=== PATIENT | male | born 1960 | race Caucasian/White ===

== ENCOUNTER 2017-05-16 19:59 | Emergency (ER) | payer OTHER ==
[~2017-05-16] VITALS: Ht 162.6 cm; Wt 66.5 kg
[~2017-05-16 19:59] MED LIST: BACTRIM,SEPT1 TABLET PO; CEFTIN500 MG PO; CORICIDIN HB1 TABLET PO; DELTASONE20 M1 PO; FAMOTIDINE20 MG PO; PREDNISONE20 MG PO; PRINIVIL10 MG PO; PROAIR HFA8.5 GM IH; ROBITUSSIN100 MG/5 M PO; SPIRIVA RESPIMAT4 G1 IH; TESSALON200 MG PO; TUMS500 MG PO
[2017-05-16 20:51] LABS: HEMATOCRIT 45.4 % (38.0-50.0); MCH 30.1 PG (29.0-34.0); MCHC 33.9 G/DL (30.0-36.0); MCV 88.8 FL (86-99); MEAN PLAT.VOLUME 8.7 uM^3 (9.0-12.4); PLATELET COUNT 392 K/uL (156-360); RBC DIS.WIDTH-SD 42.4 % (39-53); RED BLOOD COUNT 5.11 M/uL (4.00-5.50); WHITE BLOOD COUNT 12.2 K/uL (4.1-10.2)
[2017-05-16 21:01] LABS: CHLORIDE 105 mEq/L (99-109); POTASSIUM 4.1 mEq/L (3.7-5.4); SODIUM 138 mEq/L (136-147)
[2017-05-16 21:02] LABS: GLUCOSE 88 mg/dL (70-99)
[2017-05-16 21:04] LABS: ANION GAP 11 MEQ/L (2-14)
[2017-05-16 21:06] LABS: GFR ESTIMATE (CALCULATED) 52 mL/min/
[2017-05-16 21:07] LABS: UREA NITROGEN (BUN) 23 mg/dL (9-23)
[2017-05-16 21:14] LABS: TROP-I INTERPRETATION NEGATIVE; TROPONIN-I < 0.01 ng/mL (0.0-0.30)
[2017-05-17] MEDS ORDERED: TYLENOL WITH C1 EACH PO (00:08)
[2017-05-17] MEDS ORDERED: PREDNISONE20 MG PO (00:08)
[2017-05-17 00:50] VITALS: BP 151/129
== END 2017-05-17 00:40 | disposition home or self-care (01) ==
LOC: EME 19:59
DX: J44.1 Chronic obstructive pulmonary disease with (acute) exacerbation (principal); F17.200 Nicotine dependence, unspecified, uncomplicated
CPT/HCPCS: 71020; 80048; 84484; 85027; 93005; 94640; 94640 76; 99281; 99284; J7512

== ENCOUNTER 2017-05-27 08:55 | Emergency (ER) | payer OTHER ==
[~2017-05-27] VITALS: Ht 162.6 cm; Wt 69.0 kg
[~2017-05-27 08:55] MED LIST changes: +TYLENOL WITH C1 EACH PO
[2017-05-27 09:36] LABS: BASOPHIL COUNT 0.1 K/uL (0-0.1); EOSINOPHIL (%) 10.2 % (0-5); EOSINOPHIL COUNT 1.4 K/uL (0-0.3); HEMATOCRIT 44.1 % (38.0-50.0); IMMATURE GRANULOCYTE (%) 0.5 % (0.0-0.7); IMMATURE GRANULOCYTE COUNT 0.1 K/uL; INSTRUMENT ABS NEUTROPHIL CT 9.9 K/uL; LYMPHOCYTE COUNT 1.1 K/uL (1.0-2.8); MCH 29.6 PG (29.0-34.0); MCHC 33.1 G/DL (30.0-36.0); MCV 89.3 FL (86-99); MONOCYTE (%) 6.2 % (3-12); MONOCYTE COUNT 0.8 K/uL (0-0.8); NEUTROPHIL COUNT 9.9 K/uL (1.8-6.4); PLATELET COUNT 387 K/uL (156-360); RBC DIS.WIDTH-CV 13.4 % (11.8-14.6); RBC DIS.WIDTH-SD 43.6 % (39-53); RED BLOOD COUNT 4.94 M/uL (4.00-5.50); WHITE BLOOD COUNT 13.4 K/uL (4.1-10.2)
[2017-05-27 09:46] LABS: CHLORIDE 107 mEq/L (99-109); POTASSIUM 4.6 mEq/L (3.7-5.4); SODIUM 139 mEq/L (136-147)
[2017-05-27 09:48] LABS: GLUCOSE 95 mg/dL (70-99)
[2017-05-27 09:49] LABS: ANION GAP 12 MEQ/L (2-14)
[2017-05-27 09:51] LABS: GFR ESTIMATE (CALCULATED) > 59 mL/min/
[2017-05-27 09:52] LABS: UREA NITROGEN (BUN) 15 mg/dL (9-23)
[2017-05-27 09:56] LABS: TROP-I INTERPRETATION NEGATIVE; TROPONIN-I < 0.01 ng/mL (0.0-0.30)
[2017-05-27] MEDS ORDERED: PREDNISONE50 MG PO (11:22)
[2017-05-27] MEDS ORDERED: ZITHROMAX Z-PA250 MG PO (11:22)
[2017-05-27 11:40] VITALS: BP 148/90
== END 2017-05-27 11:41 | disposition home or self-care (01) ==
LOC: EME 08:55
PROVIDERS: Emergency Medicine
DX: J44.1 Chronic obstructive pulmonary disease with (acute) exacerbation (principal); F17.200 Nicotine dependence, unspecified, uncomplicated; R00.0 Tachycardia, unspecified
CPT/HCPCS: 71020; 80048; 83880; 84484; 85025; 93005; 94640; 99281; 99284; J2930

== ENCOUNTER 2017-09-26 22:28 | Inpatient (IN) | payer OTHER ==
[~2017-09-26] VITALS: Ht 162.6 cm; Wt 70.7 kg
[~2017-09-26 22:28] MED LIST changes: +PREDNISONE50 MG PO; +ZITHROMAX Z-PA250 MG PO
[2017-09-26 23:50] LABS: CARBON DIOXIDE (BICARBONATE) 23.3 MEQ/L (20-31)
[2017-09-26 23:51] LABS: HEMATOCRIT 42.9 % (38.0-50.0); HEMOGLOBIN 14.5 G/DL (12.5-16.6); MCH 28.2 PG (29.0-34.0); MCHC 33.8 G/DL (30.0-36.0); MCV 83.5 FL (86-99); PLATELET COUNT 304 K/uL (156-360); RBC DIS.WIDTH-CV 13.4 % (11.8-14.6); RBC DIS.WIDTH-SD 40.9 % (39-53); RED BLOOD COUNT 5.14 M/uL (4.00-5.50); WHITE BLOOD COUNT 20.6 K/uL (4.1-10.2)
[2017-09-27 00:01] LABS: CHLORIDE 100 mEq/L (99-109); POTASSIUM 4.2 mEq/L (3.7-5.4); SODIUM 134 mEq/L (136-147)
[2017-09-27 00:03] LABS: GLUCOSE 92 mg/dL (70-99)
[2017-09-27 00:07] LABS: CREATININE 1.1 mg/dL (0.6-1.3); GFR ESTIMATE (CALCULATED) > 59 mL/min/ (58.99-99999)
[2017-09-27 00:08] LABS: UREA NITROGEN (BUN) 17 mg/dL (9-23)
[2017-09-27 00:12] LABS: TROP-I INTERPRETATION NEGATIVE; TROPONIN-I < 0.01 ng/mL (0.0-0.30)
[2017-09-27] MEDS ORDERED: LISINOPRIL20 MG PO (00:42)
[2017-09-27] MEDS ORDERED: VENTOLIN HFA18 GM IH (00:44)
[2017-09-27] MEDS ORDERED: ALBUTEROL2.5 MG/3 M IH (00:45)
[2017-09-27] MEDS ORDERED: TYLENOL EXTRA500 MG PO (00:48)
[2017-09-27 02:59] VITALS: BP 118/69
[2017-09-27 07:30] VITALS: BP 104/59
[2017-09-27 15:46] VITALS: BP 130/72
[2017-09-27 16:01] LABS: TROP-I INTERPRETATION NEGATIVE; TROPONIN-I < 0.01 ng/mL (0.0-0.30)
[2017-09-28 00:16] VITALS: BP 146/82
[2017-09-28 00:49] LABS: TROP-I INTERPRETATION NEGATIVE; TROPONIN-I < 0.01 ng/mL (0.0-0.30)
[2017-09-28 06:08] LABS: BASOPHIL (%) 0.1 % (0-1); EOSINOPHIL (%) 0.1 % (0-5); HEMATOCRIT 39.8 % (38.0-50.0); HEMOGLOBIN 13.2 G/DL (12.5-16.6); IMMATURE GRANULOCYTE (%) 0.5 % (0.0-0.7); LYMPHOCYTE (%) 3.3 % (15-42); LYMPHOCYTE COUNT 0.4 K/uL (1.0-2.8); MCH 28.1 PG (29.0-34.0); MCHC 33.2 G/DL (30.0-36.0); MCV 84.7 FL (86-99); MONOCYTE (%) 0.9 % (3-12); MONOCYTE COUNT 0.1 K/uL (0-0.8); NEUTROPHIL (%) 95.1 % (45-76); PLATELET COUNT 317 K/uL (156-360); RBC DIS.WIDTH-CV 13.8 % (11.8-14.6); RBC DIS.WIDTH-SD 43.2 % (39-53); WHITE BLOOD COUNT 12.7 K/uL (4.1-10.2)
[2017-09-28 06:33] LABS: IRON 150 MCG/DL (35-150); TRANSFERRIN (TIBC) 250.6 mg/dL (215-380); TRANSFERRIN SATUR. 60 % (20-55)
[2017-09-28 07:24] VITALS: BP 124/74
[2017-09-28 16:57] VITALS: BP 118/76
[2017-09-29 00:40] VITALS: BP 135/87
[2017-09-29 08:05] VITALS: BP 122/77
[2017-09-29] MEDS ORDERED: MEDROL DOSEPAK4 MG PO (12:48)
== END 2017-09-29 15:39 | disposition home or self-care (01) | DRG 192 ==
LOC: EME 22:28 → EDOF 09-27 01:13 → 5EAST 09-27 01:13 → ENRESERV 09-27 01:14 → 5EAST 09-27 02:47 → ENPENDDIS 09-29 → 5EAST 09-29 15:39
PROVIDERS: Emergency Medicine; Internal Medicine; Internal Medicine Pulmonary Disease
DX: J44.0 Chronic obstructive pulmonary disease with (acute) lower respiratory infection (principal); J20.9 Acute bronchitis, unspecified; J44.1 Chronic obstructive pulmonary disease with (acute) exacerbation; I10 Essential (primary) hypertension; F10.20 Alcohol dependence, uncomplicated; F17.210 Nicotine dependence, cigarettes, uncomplicated
CPT/HCPCS: 71045; 80048; 82803; 83540; 83605; 84466; 84484; 85025; 85027; 87040; 87502; 93005; 93306; 94640; 94640 76; 94644; 99281; 99285; J1956; J2930; J7040; J7512